=== PATIENT | male | born 1940 | race Caucasian/White ===

== ENCOUNTER → 2019-03-17 | Outpatient (CLI) | payer OTHER | LOC: M.RAD 10:15 | DX: M48.07 Spinal stenosis, lumbosacral region (principal); M53.87 Other specified dorsopathies, lumbosacral region; M47.816 Spondylosis without myelopathy or radiculopathy, lumbar region ==

== ENCOUNTER → 2019-11-18 | Outpatient (CLI) | payer OTHER ==
--- NOTE | 2019-11-18 11:01 | 2DMMODE ---
[place] [address] 2 D/M-MODE ECHOCARDIOGRAM Name: DIMASBRAEDEN SASKIA Room: [facility]#: [id number] Admission: 11/18/19 Attend Phys: Peterson Hitchcock, Discharge: Date of : 42 Date of Service: 11/18/19 1101 Report #: [id number] THIS REPORT FOR: cc: Peterson Hitchcock MD, David L. MD Blick, David R. MD [facility] ~ APPROVED REPORT Study performed: 11/18/2019 07:51:42 EXAM: Comprehensive 2D, Doppler, and color-flow Echocardiogram Patient Location: Out-Patient BSA: 1.98 HR: 64 bpm BP: 130/72 mmHg Other Information Study Quality: Good Indications Dyspnea 2D Dimensions IVSd: 11.08 (7-11mm) LVOT Diam: 20.60 (18-24mm) LVDd: 36.79 mm PWd: 10.38 (7-11mm) Ascending Ao: 27.03 (22-36mm) LVDs: 22.87 (25-40mm) Aortic Root: 22.23 mm Volumes Left Atrial Volume (Systole) LA ESV Index: 17.20 mL/m2 Aortic Valve AoV Peak Gareth.: 1.50 m/s AO Peak Gr.: 8.97 mmHg LVOT Max P.67 mmHg AO Mean Gr.: 4.47 mmHg LVOT Mean P.63 mmHg LVOT Max V: 0.96 m/s AO V2 VTI: 28.33 cm LVOT Mean V: 0.58 m/s AGUEDA (VTI): 2.65 cm2 LVOT V1 VTI: 22.53 cm Mitral Valve E/A Ratio: 1.07 [place] [address] 2 D/M-MODE ECHOCARDIOGRAM Name: BRAEDEN COCHRAN Room: [facility]#: [id number] Admission: 11/18/19 Attend Phys: Peterson Hitchcock, Discharge: Date of : 42 Date of Service: 11/18/19 1101 Report #: [id number] MV Decel. Time: 234.13 ms MV E Max Gareth.: 0.99 m/s MV PHT: 67.90 ms MVA (PHT): 3.24 cm2 TDI E/Lateral E': 7.62 E/Medial E': 9.00 Medial E' Gareth.: 0.11 m/s Lateral E' Gareth.: 0.13 m/s Pulmonary Valve PV Peak Gareth.: 1.35 m/s PV Peak Gr.: 7.32 mmHg Left Ventricle The left ventricle is normal size. There is normal LV segmental wall motion. There is normal left ventricular wall thickness. Left ventricular systolic function is normal. The left ventricular ejection fraction is within the normal range. LVEF is 55-60%. The left ventricular diastolic function is normal. Right Ventricle The right ventricle is normal size. The right ventricular systolic function is normal. Atria The left atrium size is normal. The right atrium size is normal. Aortic Valve Mild aortic valve sclerosis. Mild aortic regurgitation. There is no aortic valvular stenosis. Mitral Valve The mitral valve is normal in structure. There is no mitral valve regurgitation noted. No evidence of mitral valve stenosis. Tricuspid Valve The tricuspid valve is normal in structure. There is no tricuspid valve regurgitation noted. Pulmonic Valve Pulmonic valve is not well visualized. There is no pulmonic valvular regurgitation. Great Vessels The aortic root is normal in size. IVC [place] [address] 2 D/M-MODE ECHOCARDIOGRAM Name: BRAEDEN COCHRAN SASKIA Room: [facility]#: [id number] Admission: 11/18/19 Attend Phys: Peterson Hitchcock, Discharge: Date of : 42 Date of Service: 11/18/19 1101 Report #: [id number] collapses >50% with inspiration. Pericardium There is no pericardial effusion. <Conclusion> LVEF is 55-60%. Mild aortic valve sclerosis. Mild aortic regurgitation. <ELECTRONICALLY SIGNED> By: Peterson Doyle MD, [facility] 11/18/19 1101 00 00 Peterson Doyle MD, [facility] /INF
== END ==
LOC: M.CRD 07:57
PROVIDERS: ATTEND Internal Medicine
DX: I35.1 Nonrheumatic aortic (valve) insufficiency (principal); K21.0 Gastro-esophageal reflux disease with esophagitis; J45.22 Mild intermittent asthma with status asthmaticus; I10 Essential (primary) hypertension; I25.10 Atherosclerotic heart disease of native coronary artery without angina pectoris; J84.10 Pulmonary fibrosis, unspecified; J98.4 Other disorders of lung; M41.84 Other forms of scoliosis, thoracic region

== ENCOUNTER → 2019-11-20 | Outpatient (CLI) | payer OTHER ==
--- NOTE | 2019-11-20 17:54 | CARDNUC ---
[place] [address] CARDIAC NUCLEAR IMAGING REPORT Name: DIMASBRAEDEN SASKIA Room: [facility]#: [id number] Admission: 11/20/19 Attend Phys: Peterson Hitchcock, Discharge: Date of : 42 Date of Service: 11/20/19 1754 Report #: [id number] THIS REPORT FOR: cc: Peterson Hitchcock MD, David L. MD Liston, Michael J. MD [facility] ~ APPROVED REPORT Study performed: 11/20/2019 07:45:00 Indication: Chest pain, Dyspnea Patient Location: Out-Patient Stress Tech: Carol Kelly Stress Nurse: Amy Evans RN Ht: 5 ft 9 in Wt: 181 lbs BSA: 1.98 m2 HR: 78 bpm BP: 141/68 mmHg BMI: 26.72 Rhythm: NSR Medical History Medications: Amlodipine, Cardura, HCTZ Allergies: No known drug allergies Cardiac Risk Factors: Age, HTN Resting Data Rest SPECT myocardial perfusion imaging was performed in supine position 30 minutes following the intravenous injection of 11.2 mCi of Tc-99m Sestamibi. Time of rest injection: 08:15 The images were gated to evaluate regional wall motion and calculate left ventricular ejection fraction. Administration Route: IV Administration Site: Right Arm Pharmacologic Stress Pharmacologic stress test was performed by injecting Regadenoson 0.4 mg IV push over 10-15 seconds immediately followed by the intravenous injection of 33.3 mCi of Tc-99m Sestamibi. Time of stress injection: 10:05 Administration Route: IV Administration Site: Right Arm Heart Rate at time of stress injection: 115 bpm. Gated Stress SPECT was performed 45 [place] [address] CARDIAC NUCLEAR IMAGING REPORT Name: BRAEDEN COCHRAN Room: [facility]#: [id number] Admission: 11/20/19 Attend Phys: Peterson Hitchcock, Discharge: Date of : 42 Date of Service: 11/20/19 1754 Report #: [id number] injection. The images were gated to evaluate regional wall motion and calculate left ventricular ejection fraction. Prone imaging was performed. Stress Test Details Stress Test: Pharmacologic stress testing performed using 0.4 mg of regadenoson per 5 mL given IV over 10 seconds. Reason for pharmacologic stress test: physical limitation. HR Max Heart Rate (APMHR): 142 bpm Resting HR: 78 bpm Target HR (85% APMHR): 120 bpm Max HR Achieved: 115 bpm % of APMHR: 80 Recovery HR: 95 bpm HR response to stress: Normal HR response to stress BP Resting BP: 141/68 mmHg Max BP: 150/54 mmHg Recovery BP: 136/66 mmHg BP response to stress: Normal blood pressure response to stress. ECG Resting ECG: Sinus Rhythm Stress ECG: Sinus Tachycardia ST Change: None Arrhythmia: VPC's Recovery ECG: Sinus Rhythm Recovery ST Change: None Recovery Arrhythmia: VPC's Clinical Reason for Termination: Completed protocol Stress Symptoms: None The patient tolerated Lexiscan infusion without significant cardiac symptoms. Stress ECG Conclusion The baseline twelve-lead EKG shows sinus rhythm without significant ST segment abnormality. EKGs obtained during and post Lexiscan infusion shows sinus rhythm and sinus tachycardia with no significant ST segment changes when compared to baseline. There were unifocal premature ventricular contractions noted with Lexiscan infusion. No other significant [place] [address] CARDIAC NUCLEAR IMAGING REPORT Name: BRAEDEN COCHRAN SASKIA Room: [facility]#: [id number] Admission: 11/20/19 Attend Phys: Peterson Hitchcock, Discharge: Date of : 42 Date of Service: 11/20/19 1754 Report #: [id number] Study Quality Study: Good Artifact: Mild Diaphragmatic artifact Study Data At rest, the left ventricular ejection fraction was 75%.. Post stress, the left ventricular ejection was 79%.. TID = 0.94. Perfusion Perfusion images obtained in the supine position at rest and post Lexiscan stress show mild photopenia in the inferior wall that resolves for the most part with post-rest prone imaging suggesting diaphragmatic attenuation artifact. There were no other significant fixed or reversible defects identified. Wall Motion Normal left ventricular wall motion. Nuclear Conclusion ECG Findings: negative for ischemia Clinical Findings: negative for ischemia Nuclear Findings: negative for ischemia Exercise Capacity: not assessed Left Ventricular Function: normal Risk Study: low Perfusion study show no defect to suggest ischemia. Left ventricular systolic function appears normal on gated studies. This is a low risk study. <Conclusion> The baseline twelve-lead EKG shows sinus rhythm without significant ST segment abnormality. EKGs obtained during and post Lexiscan infusion shows sinus rhythm and sinus tachycardia with no significant ST segment changes when compared to baseline. There were unifocal premature ventricular contractions noted with Lexiscan infusion. No other significant arrhythmias noted. <ELECTRONICALLY SIGNED> By: Deep Dong MD, FACC 11/20/191753 53 53 Deep Dong MD, FACC /INF
== END ==
LOC: M.CT 11-12 10:29 → M.NUC 11-18 08:00 → M.CRD 11-18 08:00 → M.CT 11-18 09:00 → M.NUC 07:49
PROVIDERS: ATTEND Internal Medicine
DX: I10 Essential (primary) hypertension (principal); K21.0 Gastro-esophageal reflux disease with esophagitis; J45.22 Mild intermittent asthma with status asthmaticus; R07.9 Chest pain, unspecified; R06.00 Dyspnea, unspecified

== ENCOUNTER → 2019-12-22 | Outpatient (CLI) | payer OTHER ==
--- NOTE | ~2019-12-22 | PF ---
[address] [address] PULMONARY FUNCTION REPORT Name: BRAEDEN COCHRAN Room: [facility]#: [id number] Admission: 12/22/19 Attend Phys: Peterson Hitchcock MD Discharge: Date of : 42 Report #: [id number] THIS REPORT FOR: //name// CC: Peterson Hitchcock DATE OF SERVICE: 12/22/2019 The FEV1/FVC ratio is normal at 76% with an FVC normal at 102% and FEV1 normal at 108%. The BHE91-12 is also normal at 108%. The patient's FEV1 is noted to be 3.04 liters. After the administration of a bronchodilator, there is no significant increase in any of these values. The patient was unable to perform lung volumes. The patient's DLCO without adjustment for hemoglobin is noted to be 119; with adjustment for hemoglobin, it is normal at 92%. The patient's flow volume loop is concave upwards. IMPRESSION: 1. Spirometry is normal; however, considering significantly concave upwards flow volume loop, possibility is considered that the patient does have minimal underlying obstruction not detected by spirometry. Clinical correlation is advised. 2. The patient's DLCO is normal; however, it is towards the higher end of normal range. This could be a normal variant or could have other etiologies as well, but this can also be seen in bronchial asthma. Again, clinical correlation is advised. By: [id number] damián Chandler
== END ==
LOC: M.PUL 10:30
PROVIDERS: ATTEND Internal Medicine
DX: J45.22 Mild intermittent asthma with status asthmaticus (principal); I10 Essential (primary) hypertension; K21.0 Gastro-esophageal reflux disease with esophagitis